=== PATIENT | male | born 1995 | race Asian ===

== ENCOUNTER 2020-02-18 10:47 | Emergency (ER) | payer OTHER, SELFPAY ==
[2020-02-18 11:03] VITALS: Ht 185.4 cm
[2020-02-18 12:18] LABS: CHLORIDE SERUM 102 mmol/L (98-107); CREATININE SERUM 0.9 mg/dL (0.7-1.3); GFR1 > 60 mL/min; GLUCOSE SERUM 102 mg/dL (74-106); POTASSIUM SERUM 3.8 mmol/L (3.5-5.1); SODIUM SERUM 138 mmol/L (136-145)
[2020-02-18 12:23] LABS: ALBUMIN 3.8 g/dL (3.4-5.0); ALKALINE PHOSPHATASE 96 U/L (46-116); ALT/SGPT 29 U/L (16-63); AST/SGOT 16 U/L (15-37); C REACTIVE PROTEIN 0.2 mg/dL (<=0.9); LACTIC DEHYDROGENASE (LDH) 136 U/L (100-190); TOTAL PROTEIN, SERUM 7.2 g/dL (6.4-8.2)
[2020-02-18 13:24] LABS: RED CELL DISTRIBUTION WIDTH 13.5 % (11.5-14.5)
[2020-02-18 13:26] LABS: PLATELET COUNT 81 x10^3mcL (130-400)
[2020-02-18 13:56] VITALS: BP 117/73
[2020-02-18 14:00] LABS: BAND NEUTROPHIL 10 % (0-10); BASOPHIL 0 % (0-2); MONOCYTE 7 % (0-7); SEGMENTED NEUTROPHILS 62 % (37-75); rbc morphology (normal/abnorm) NORMAL (NORMAL)
== END 2020-02-18 13:56 | disposition home or self-care (01) ==
LOC: ED 10:47
PROVIDERS: Specialist
DX: R07.89 Other chest pain (principal); R06.02 Shortness of breath
CPT/HCPCS: 36415; 36600; 83880; 87804; Q0092

== ENCOUNTER 2020-03-07 11:35 | Emergency (ER) | payer OTHER ==
[~2020-03-07] VITALS: Ht 185.4 cm; Wt 85.7 kg
[2020-03-07 11:44] VITALS: Ht 185.4 cm; Wt 85.7 kg
[2020-03-07 13:36] VITALS: BP 123/80
== END 2020-03-07 13:36 | disposition home or self-care (01) ==
LOC: ED 11:35
DX: K29.70 Gastritis, unspecified, without bleeding (principal); R07.89 Other chest pain
CPT/HCPCS: Q0092

== ENCOUNTER 2020-04-13 11:16 | Emergency (ER) | payer OTHER ==
[~2020-04-13] VITALS: Ht 177.8 cm; Wt 87.1 kg
[2020-04-13 11:33] VITALS: Ht 177.8 cm; Wt 87.1 kg
[2020-04-13 12:43] LABS: BASOPHIL % 0.5 % (0-2); RED CELL DISTRIBUTION WIDTH 13.4 % (11.5-14.5)
[2020-04-13 12:54] LABS: CALCIUM 8.6 mg/dL (8.5-10.1); CARBON DIOXIDE 26.1 mmol/L (21-32); CHLORIDE SERUM 106 mmol/L (98-107); GFR1 > 60 mL/min; GLUCOSE SERUM 143 mg/dL (74-106); POTASSIUM SERUM 3.4 mmol/L (3.5-5.1); SODIUM SERUM 142 mmol/L (136-145)
[2020-04-13 12:55] LABS: PLATELET COUNT 91 x10^3mcL (130-400)
[2020-04-13 12:58] LABS: ALBUMIN 3.4 g/dL (3.4-5.0); ALKALINE PHOSPHATASE 88 U/L (46-116); ALT/SGPT 37 U/L (16-63); AST/SGOT 16 U/L (15-37); BILIRUBIN TOTAL 0.8 mg/dL (0.20-1.00); CHOLESTEROL 142 mg/dL (<200); HDL CHOLESTEROL 36 mg/dL (40-60); LIPASE 126 IU/L (73-393); TOTAL PROTEIN, SERUM 6.7 g/dL (6.4-8.2)
[2020-04-13 13:19] LABS: microscopic required? NO
[2020-04-13 13:55] LABS: urine erythrocyte NEGATIVE (NEGATIVE)
[2020-04-13 14:52] LABS: AMPHETAMINE QUAL UR NONE DETECTED (See below)
[2020-04-13 16:03] VITALS: BP 103/63
== END 2020-04-13 16:03 | disposition home or self-care (01) ==
LOC: ED 11:16
PROVIDERS: Emergency Medicine
DX: R07.89 Other chest pain (principal)
CPT/HCPCS: 83880; J1885; Q0092